=== PATIENT | female | born 1995 | race Caucasian/White ===

== ENCOUNTER 2021-10-05 22:59 | Emergency (ER) | payer OTHER ==
[2021-10-05 23:07] VITALS: BMI 29.6
[2021-10-06] MEDS ORDERED: SODIUM CHLORIDE 0.9% 500 ML INFUS.BAG IV ONE (00:20)
[2021-10-06] MEDS ORDERED: ACETAMINOPHEN 1000 MG/100 ML BAG IVPB ONE (00:20)
[2021-10-06] MEDS ORDERED: ONDANSETRON 4 MG/2 ML VIAL IVPUSH ONE (00:20)
[2021-10-06] MEDS ORDERED: ONDANSETRON 4 MG/2 ML VIAL ONE (01:05)
[2021-10-06] MEDS ORDERED: ACETAMINOPHEN INJECTION 100 ML IVPB ONE (01:05)
[2021-10-06 01:26] LABS: HEMATOCRIT 41.8 % (32.4-45.2); MCH 30.2 pg (25.7-33.7); MCHC 33.6 g/dl (32.0-36.0); MEAN CELL VOLUME 89.9 fl (80-96); MEAN PLT VOLUME 8.2 fl (7.5-11.1); PLATELET COUNT 259 10^3/uL (134-434); RBC 4.65 M/mm3 (3.60-5.2); RDW 13.4 % (11.6-15.6); WHITE BLOOD COUNT 11.8 K/mm3 (4.0-10.0)
[2021-10-06 01:45] LABS: CALCIUM 8.8 mg/dL (8.5-10.1)
[2021-10-06 01:46] LABS: ALBUMIN 4.1 g/dl (3.4-5.0); BLOOD UREA NITROGEN 18.3 mg/dL (7-18)
[2021-10-06 01:48] LABS: CREATININE 0.7 mg/dL (0.55-1.3)
[2021-10-06 01:50] LABS: BILIRUBIN,TOTAL 0.7 mg/dL (0.2-1)
[2021-10-06 03:14] VITALS: BP 128/76; PULSE 91; TEMP 98.3
== END 2021-10-06 02:55 | disposition home or self-care (01) ==
LOC: JER 22:59
PROC: 3E033GC Introduction of Other Therapeutic Substance into Peripheral Vein, Percutaneous Approach (ICD-10-PCS; principal; 2021-10-05)
DX: R11.10 Vomiting, unspecified (principal); R19.7 Diarrhea, unspecified
CPT/HCPCS: 36415; 80053; 84703; 85025; 99284-25

== ENCOUNTER → 2023-11-19 | Day surgery (SDC) | payer OTHER | END | disposition home or self-care (01) | LOC: FRADUS-SUR 09:52 | PROVIDERS: ATTEND Surgery | PROC: 0HBT3ZX Excision of Right Breast, Percutaneous Approach, Diagnostic (ICD-10-PCS; principal; 2023-11-19) | DX: N60.31 Fibrosclerosis of right breast (principal); N63.11 Unspecified lump in the right breast, upper outer quadrant | CPT/HCPCS: 19083; 88305-TC ==